=== PATIENT | male | born 1985 | race American Indian/Alaskan Native ===

== ENCOUNTER 2019-03-13 19:19 | Emergency (ER) | payer SELFPAY ==
[2019-03-13 19:27] VITALS: BP 127/68
--- NOTE | 2019-03-13 20:14 | Emergency Department Report ---
- HPI History of Present Illness: This is a 34-year-old male presents to the ED stating that his sexual partner just noted today that she had chlamydia and was treated for it. Patient states he is having penile discharge but denies testicular swelling pain or any lesions. He denies fevers/chills/nausea or vomiting or dysuria - ROS Review of Systems: As noted in HPI - Exam Vital Signs: Vital Signs 03/13/19 19:25 Temperature 98.2 F Pulse Rate 77 Respiratory 18 Rate Blood Pressure 127/68 O2 Sat by Pulse 98 Oximetry Physical Exam: Gen.: Alert and oriented 3. No acute distress MSE screening note: Focused history and physical exam performed. Due to findings the following was ordered: <PAUL POLLOCK A - Last Filed: 03/13/19 21:02> - Exam Vital Signs: Vital Signs 03/13/19 19:25 Temperature 98.2 F Pulse Rate 77 Respiratory 18 Rate Blood Pressure 127/68 O2 Sat by Pulse 98 Oximetry MSE screening note: Focused history and physical exam performed. Due to findings the following was ordered: <CHRIS MCMILLAN P - Last Filed: 03/14/19 02:53> Chief Complaint: Urogenital-Male Stated Complaint: DISCHARGE FROM [facility] Medical Decision Making - Medical Decision Making 31-year-old male presents with STD exposure. Discussed with the patient and this is not a medical emergency and he is to go follow up with the sauce at medical clinic or health department Discussed patient is to abstain from sex until treated. Discussed the follow-up with the health department for further STD testing. Patient's alert and oriented times 3. Vital signs are normal patient is in no acute discharge. Patient will be discharged home with instructions. <PAUL POLLOCK A - Last Filed: 03/13/19 21:02> - Medical Decision Making Attestation: Available for consultation <CHRIS MCMILLAN P - Last Filed: 03/14/19 02:53> ED Disposition for MSE Is pt being admited?: No Does the pt Need Aspirin: No Time of Disposition: 20:13 <PAUL POLLOCK A - Last Filed: 03/13/19 21:02> Is pt being admited?: No <CHRIS MCMILLAN P - Last Filed: 03/14/19 02:53> Clinical Impression: Screening for STD (sexually transmitted disease) Disposition: Z-07 MED SCREENING EXAM-LEFT Condition: Stable Instructions: Safe Sex (ED) Referrals: [facility] [Outside] - 3-5 Days
== END 2019-03-13 21:00 | disposition left against medical advice (07) ==
LOC: ED 19:19
DX: Z20.2 Contact with and (suspected) exposure to infections with a predominantly sexual mode of transmission (principal)
CPT/HCPCS: 99282

== ENCOUNTER 2019-12-21 16:22 | Emergency (ER) | payer SELFPAY | END 2019-12-21 17:19 | disposition left against medical advice (07) | LOC: ED 16:22 | DX: E86.0 Dehydration (principal); Z53.21 Procedure and treatment not carried out due to patient leaving prior to being seen by health care provider ==